=== PATIENT | male | born 1960 | race Caucasian/White ===

== ENCOUNTER 2021-04-01 14:02 | Emergency (ER) | payer OTHER ==
[2021-04-01 14:14] VITALS: BP 128/67
[2021-04-01] MEDS ORDERED: MORPHINE 4 MG/1 ML INJ IV ONE (14:19)
[2021-04-01] MEDS ORDERED: ONDANSETRON 4 MG/2 ML INJ IV ONE (14:19)
[2021-04-01] MEDS ORDERED: SODIUM CHLORIDE 0.9% 1000 ML 1,000 ML IV ONE (14:19)
[2021-04-01] MEDS ORDERED: KETOROLAC 30 MG/1 ML INJ IV ONE (14:19)
--- NOTE | 2021-04-01 14:48 | XRay Report ---
CHEST 1 VIEW 04/01/2021 2:31 PM INDICATION / CLINICAL INFORMATION: fever. COMPARISON: None available. FINDINGS: SUPPORT DEVICES: None. HEART / MEDIASTINUM: No significant abnormality. LUNGS / PLEURA: Linear opacity in the right lower lung appears to indicate chronic scarring. No pneum othorax. ADDITIONAL FINDINGS: No significant additional findings. IMPRESSION: 1. No definite acute findings. Linear right lower lung opacity appears to represent chronic scarring. Signer Name: Russ Koenig MD Signed: 04/01/2021 2:44 PM Workstation Name: [id number]
[2021-04-01 14:57] LABS: Basophils # (Auto) 0.1 K/mm3 (0.0-0.1); Basophils % (Auto) 0.7 % (0.0-1.8); Eosinophils % (Auto) 0.4 % (0.0-4.3); Hematocrit 44.8 % (35.5-45.6); Hemoglobin 14.8 gm/dl (11.8-15.2); Lymphocytes # (Auto) 0.7 K/mm3 (1.2-5.4); Lymphocytes % (Auto) 8.8 % (13.4-35.0); Mean Corpuscular HGB Conc 33 % (32-34); Mean Corpuscular Volume 93 fl (84-94); Monocytes # (Auto) 0.7 K/mm3 (0.0-0.8); Monocytes % (Auto) 8.4 % (0.0-7.3); Platelet Count 284 K/mm3 (140-440); Red Blood Count 4.81 M/mm3 (3.65-5.03)
[2021-04-01 15:28] LABS: BUN/Creatinine Ratio 13; Blood Urea Nitrogen 10 mg/dL (9-20); Calcium 8.8 mg/dL (8.4-10.2); Hemolysis Index 6
--- NOTE | 2021-04-01 16:36 | Emergency Department Report ---
ED Fever HPI - General Chief Complaint: Fever Stated Complaint: FEVER/BODY ACHES Time Seen by Provider: 04/01/21 14:19 - History of Present Illness Initial Comments: Patient is a 61-year-old male with no significant past medical history is presenting with 2 days of myalgias. Patient states pain is 8 out of 10 in severity. He also had shaking chills and decreased appetite. Denies cough or shortness of breath. Patient states he recently had a COVID-19 booster. Denies nausea vomiting diarrhea or abdominal pain at this time. Patient states he does have a generalized headache that is pounding and estimated 6 out of 10 in severity. ED Review of Systems ROS: Stated complaint: FEVER/BODY ACHES Other details as noted in HPI Comment: All other systems reviewed and negative ED Past Medical Hx - Medications Home Medications: Home Medications Medication Instructions Recorded Confirmed Last Taken Type HYDROcodone/APAP 5-325 [[place] 1 each PO Q6HR PRN #14 tablet 04/01/21 Unknown Rx 5/325] Ketorolac [Toradol] 10 mg PO Q6H PRN #12 tablet 04/01/21 Unknown Rx ED Physical Exam - General Limitations: No Limitations General appearance: alert, in no apparent distress - Head Head exam: Present: atraumatic, normocephalic - Eye Eye exam: Present: normal appearance - ENT ENT exam: Present: mucous membranes moist - Neck Neck exam: Present: normal inspection - Respiratory Respiratory exam: Present: normal lung sounds bilaterally. Absent: respiratory distress, wheezes, rales, rhonchi - Cardiovascular Cardiovascular Exam: Present: regular rate, normal rhythm, normal heart sounds. Absent: systolic murmur, diastolic murmur, rubs, gallop - GI/Abdominal GI/Abdominal exam: Present: soft, normal bowel sounds. Absent: distended, tenderness, guarding, rebound - Rectal Rectal exam: Present: deferred - Extremities Exam Extremities exam: Present: normal inspection - Back Exam Back exam: Present: normal inspection - Neurological Exam Neurological exam: Present: alert, oriented X3 - Psychiatric Psychiatric exam: Present: normal affect, normal mood - Skin Skin exam: Present: warm, dry, intact, normal color. Absent: rash ED Course Vital Signs 04/01/21 04/01/21 04/01/21 14:14 15:56 15:57 Temperature 102.6 F H Pulse Rate 103 H Respiratory 18 17 17 Rate Blood Pressure 128/67 [Right] O2 Sat by Pulse 94 Oximetry ED Medical Decision Making - Lab Data Result diagrams: 04/01/21 14:27 04/01/21 14:27 Lab Results 04/01/21 04/01/21 Range/Units 14:27 14:27 WBC 8.2 (4.5-11.0) K/mm3 RBC 4.81 (3.65-5.03) M/mm3 Hgb 14.8 (11.8-15.2) gm/dl Hct 44.8 (35.5-45.6) % MCV 93 (84-94) fl MCH 31 (28-32) pg MCHC 33 (32-34) % RDW 13.0 L (13.2-15.2) % Plt Count 284 (140-440) K/mm3 Lymph % (Auto) 8.8 L (13.4-35.0) % [place] % (Auto) 8.4 H (0.0-7.3) % Eos % (Auto) 0.4 (0.0-4.3) % Baso % (Auto) 0.7 (0.0-1.8) % Lymph # (Auto) 0.7 L (1.2-5.4) K/mm3 [place] # (Auto) 0.7 (0.0-0.8) K/mm3 Eos # (Auto) 0.0 (0.0-0.4) K/mm3 Baso # (Auto) 0.1 (0.0-0.1) K/mm3 Seg Neutrophils % 81.7 H (40.0-70.0) % Seg Neutrophils # 6.7 (1.8-7.7) K/mm3 Sodium 134 L (137-145) mmol/L Potassium 4.1 (3.6-5.0) mmol/L Chloride 98.0 (98-107) mmol/L Carbon Dioxide 24 (22-30) mmol/L Anion Gap 16 mmol/L BUN 10 (9-20) mg/dL Creatinine 0.8 (0.8-1.3) mg/dL Estimated GFR > 60 ml/min BUN/Creatinine Ratio 13 % Glucose 135 H (75-100) mg/dL Calcium 8.8 (8.4-10.2) mg/dL - Radiology Data CHEST 1 VIEW 04/01/2021 2:31 PM INDICATION / CLINICAL INFORMATION: fever. COMPARISON: None available. FINDINGS: SUPPORT DEVICES: None. HEART / MEDIASTINUM: No significant abnormality. LUNGS / PLEURA: Linear opacity in the right lower lung appears to indicate chronic scarring. No pneumothorax. ADDITIONAL FINDINGS: No significant additional findings. IMPRESSION: 1. No definite acute findings. Linear right lower lung opacity appears to represent chronic scarring. Signer Name: Russ Koenig MD Signed: 04/01/2021 2:44 PM Workstation Name: [email or web address] Transcribed By: FREDIS Dictated By: Russ Koenig MD Electronically Authenticated By: Russ Koenig MD Signed Date/Time: 04/01/21 1444 - Medical Decision Making No evidence of pneumonia found. Laboratory studies unremarkable. Patient could be a breakthrough case of Covid but also could have flu as well. Patient to be given medications for his body aches and patient stable for discharge. Critical care attestation.: If time is entered above; I have spent that time in minutes in the direct care of this critically ill patient, excluding procedure time. ED Disposition Clinical Impression: Flu-like symptoms, Fever, Myalgia Disposition: 01 HOME / SELF CARE / HOMELESS Is pt being admited?: No Does the pt Need Aspirin: No Condition: Stable Instructions: Fever, Adult, Musculoskeletal Pain Additional Instructions: Please follow-up as an outpatient for COVID-19 testing as well as flu testing Referrals: PRIMARY CAREMD [Primary Care Provider] - 3-5 Days Time of Disposition: 16:35
== END 2021-04-01 17:01 | disposition home or self-care (01) ==
LOC: ED 14:02
DX: R50.9 Fever, unspecified (principal); M79.18 Myalgia, other site; Z79.899 Other long term (current) drug therapy
CPT/HCPCS: 36415; 71045; 80048; 85025; 96361; 96374; 96375; 99284; J1885; J2270; J2405; J7030; Q0162